=== PATIENT | female | born 1965 | race African-American/Black ===

== ENCOUNTER 2024-06-23 16:10 | Emergency (ER) | payer OTHER ==
[~2024-06-23] VITALS: Ht 167.6 cm; Wt 78.0 kg
[2024-06-23 16:12] VITALS: TEMP 36; O2SAT 100
[2024-06-23 17:54] VITALS: BP 125/64; PULSE 71; RESP 16
[2024-06-23] MEDS: KETOROLAC 30MG/ML VIAL IM ONE (17:54)
[2024-06-23 17:55] VITALS: TEMP 97.7
[2024-06-23] MEDS: ACETAMINOPHEN 325MG TABLET PO ONE (17:55)
[2024-06-23] MEDS ORDERED: TOPUD PO (18:36)
[2024-06-23] MEDS ORDERED: IBUP-2029 MT (18:36)
== END 2024-06-23 19:05 | disposition home or self-care (01) ==
LOC: ER 16:10
DX: M25.522 Pain in left elbow (principal); R91.8 Other nonspecific abnormal finding of lung field; R07.89 Other chest pain; M25.572 Pain in left ankle and joints of left foot; I10 Essential (primary) hypertension; Z79.899 Other long term (current) drug therapy; V43.52XA Car driver injured in collision with other type car in traffic accident, initial encounter; Y93.89 Activity, other specified; Y92.89 Other specified places as the place of occurrence of the external cause; Y99.8 Other external cause status
CPT/HCPCS: 99284; 71045; 73080; 73610; 96372; J1885